=== PATIENT | female | born 1995 | race Caucasian/White ===

== ENCOUNTER 2017-02-17 08:10 | Emergency (ER) | payer OTHER ==
[2017-02-17 08:15] VITALS: BP 116/58; PULSE 78; TEMP 97.7; BMI 21.1
[2017-02-17] MEDS ORDERED: LORATADINE 10 MG TABLET PO ONE (09:25)
--- NOTE | 2017-02-17 09:28 | PDOC ---
History of Present Illness - General Chief Complaint: Allergic Reaction Stated Complaint: ALLERGIC REACTION Time Seen by Provider: 02/17/17 09:06 History Source: Patient Exam Limitations: No Limitations - History of Present Illness Initial Comments: 02/17/17 09:29 My chief complaint: Itchiness and swelling bilateral eyes since yesterday History of present illness: Patient is a 21-year-old female with no significant medical history here today with itchiness, swelling and slight redness around bilateral eyes left worse than right that is pruritic since yesterday. Patient reports that she was around a new dog on 3 days ago and woke up the next day with the itchiness swelling and slight erythema around eyes. Patient took Benadryl with minimal relief of itchiness. Patient denies any discharge from her eyes or any change in her vision. Patient denies any sore throat, or any recent fevers. Patient denies any nasal congestion, cough, any difficulty swallowing or breathing. Patient denies any new cosmetics or medications or any new foods. Patient reports that the dog was licking her on her face. Timing/Duration: intermittent Severity: moderate (swelling periorbital b/l left greater than right ) Associated Symptoms: reports: other (swelling periorbital area b/l ) Past History - Past Medical History Allergies/Adverse Reactions: Allergies Allergy/AdvReac Type Severity Reaction Status Date / Time No Known Allergies Allergy Verified 02/17/17 08:15 Home Medications: Ambulatory Orders Ketotifen Fumarate [Zaditor] 5 ml OU Q10H #1 drops 02/17/17 COPD: No Other medical history: Patient denies medical hx - Suicide/Smoking/Psychosocial Hx Smoking History: Never smoked Hx Alcohol Use: Yes (occasionally) Drug/Substance Use Hx: No Review of Systems - Review of Systems Able to Perform ROS?: Yes Constitutional: No: Symptoms Reported HEENTM: Yes: Other (swelling b/l periorbital area left greater than right itchy) Respiratory: No: Symptoms reported Cardiac (ROS): No: Symptoms Reported ABD/GI: No: Symptoms Reported : No: Symptoms Reported Musculoskeletal: No: Symptoms Reported Integumentary: Yes: Other (swelling with slight erythema periorbital area b/l left greater than rt. ) Neurological: No: Symptoms reported *Physical Exam - Vital Signs Last Vital Signs Temp Pulse Resp BP Pulse Ox 97.7 F 78 18 116/58 100 12/25/17 08:12 02/17/17 08:12 02/17/17 08:12 02/17/17 08:12 02/17/17 08:12 - Physical Exam General Appearance: Yes: Appropriately Dressed HEENT: positive: TMs Normal, Pharyngeal Erythema. negative: Tonsillar Exudate, Tonsillar Erythema Neck: positive: Lymphadenopathy (L). negative: Lymphadenopathy (R) Respiratory/Chest: positive: Lungs Clear, Normal Breath Sounds. negative: Chest Tender, Respiratory Distress Cardiovascular: positive: Regular Rhythm, Regular Rate, S1, S2 Integumentary: positive: Erythema (minimal erythema b/l periorbital area ), Swelling (b/l periorbital area left greater than rt. ) Medical Decision Making - Medical Decision Making 02/17/17 09:31 Patient is a 21-year-old female with no significant medical history here today with itchiness, swelling and slight redness around bilateral eyes left worse than right that is pruritic since yesterday. Patient reports that she was around a new dog on 3 days ago and woke up the next day with the itchiness swelling and slight erythema around eyes. Patient took Benadryl with minimal relief of itchiness. Patient denies any discharge from her eyes or any change in her vision. Patient denies any sore throat, or any recent fevers. Patient denies any nasal congestion, cough, any difficulty swallowing or breathing. Patient denies any new cosmetics or medications or any new foods. Patient reports that the dog was licking her on her face. allergic conjunctivitis pharyngitis r/o strep PLAN: throat c& S negative Zaditor 1 gtt ou q 10h until symptoms resolved claritin 10 mg po now 02/17/17 10:12 *DC/Admit/Observation/Transfer Diagnosis at time of Disposition: Allergic conjunctivitis Qualifiers: Laterality: bilateral Qualified Code(s): H10.13 - Acute atopic conjunctivitis, bilateral - Discharge Dispostion Disposition: HOME Condition at time of disposition: Stable - Prescriptions Prescriptions: Ketotifen Fumarate [Zaditor] 5 ml OU Q10H #1 drops - Referrals - Patient Instructions Additional Instructions: Follow-up with your primary care provider as soon as possible You may take Benadryl as directed by 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
[2017-02-17] MEDS ORDERED: LORATADINE 10 MG TABLET ONE (09:39)
== END 2017-02-17 10:38 | disposition home or self-care (01) ==
LOC: JERFT 08:10
DX: H10.13 Acute atopic conjunctivitis, bilateral (principal)
CPT/HCPCS: 87070; 87430; 99281-25